=== PATIENT | male | born 1980 | race American Indian/Alaskan Native ===

== ENCOUNTER 2019-01-07 00:44 | Emergency (ER) | payer OTHER ==
[2019-01-07] MEDS ORDERED: NACL 0.9% 1000 ML 2,000 ML IV ONE (01:06)
--- NOTE | 2019-01-07 01:07 | Emergency Department Report ---
ED General Adult HPI - General Chief complaint: Dizziness Stated complaint: THUMB INJURY/DIZZINESS Time Seen by Provider: 01/07/19 00:59 Source: patient Mode of arrival: Ambulatory Limitations: Physical Limitation - History of Present Illness Initial comments: This is a 38-year-old gentleman. His primary care doctor is Dr. De Leon He reports a history of hypertension, and currently takes Diovan, 320/12.5. This was recently increased by his primary care doctor from 160 mg. This was increased a few weeks to months ago. Patient presents to the emergency room today with 2 complaints. His first complaint is right thumb pain and dislocation. The patient is right-hand dominant. This started after the patient opened up his refrigerator with too much force. He has sharp pain, and decreased range of motion in the right thumb. He has no other extremity injuries or complaints. He denies other trauma. He also admits to having a few recreational drinks tonight. He reports that he feels dizzy. The dizziness is described as lightheadedness. He denies headache, neck pain, chest pain, abdominal pain, shortness of breath, vomiting blood, defecating blood. The patient denies DVT, pulmonary embolus risk factors. -: Sudden Location: right, upper extremity Radiation: non-radiation Consistency: constant Improves with: rest Worsens with: movement - Related Data Previous Rx's Medication Instructions Recorded Last Taken Type Acetaminophen [Non-Aspirin Extra 500 mg PO Q6HR PRN #30 tablet 01/07/19 Unknown Rx Strength] Ibuprofen [Motrin] 600 mg PO Q8H PRN #30 tablet 01/07/19 Unknown Rx Allergies Allergy/AdvReac Type Severity Reaction Status Date / Time No Known Allergies Allergy Unverified 01/07/19 00:52 ED Review of Systems ROS: Stated complaint: THUMB INJURY/DIZZINESS Other details as noted in HPI Constitutional: denies: fever Eyes: denies: eye discharge ENT: denies: dental pain, hearing loss, epistaxis, congestion Respiratory: denies: cough Cardiovascular: other (near syncope). denies: chest pain Gastrointestinal: denies: abdominal pain, nausea, vomiting Musculoskeletal: joint swelling, arthralgia, myalgia Skin: denies: lesions Neurological: weakness Psychiatric: anxiety ED Past Medical Hx - Past Medical History Previous Medical History?: Yes Hx Hypertension: Yes - Surgical History Past Surgical History?: No - Social History Smoking Status: Current Every Day Smoker Substance Use Type: Alcohol - Medications Home Medications: Home Medications Medication Instructions Recorded Confirmed Last Taken Type Acetaminophen [Non-Aspirin Extra 500 mg PO Q6HR PRN #30 tablet 01/07/19 Unknown Rx Strength] Ibuprofen [Motrin] 600 mg PO Q8H PRN #30 tablet 01/07/19 Unknown Rx ED Physical Exam - General Limitations: Physical Limitation General appearance: alert, in no apparent distress - Head Head exam: Present: atraumatic, normocephalic - Eye Eye exam: Present: normal appearance, EOMI, other (visual acuity intact to finger counting, color perception, reading at a close distance). Absent: nystagmus - ENT ENT exam: Present: normal exam, normal orophraynx, mucous membranes moist, normal external ear exam - Neck Neck exam: Present: normal inspection, full ROM. Absent: tenderness, meningism us - Respiratory Respiratory exam: Present: normal lung sounds bilaterally. Absent: respiratory distress - Cardiovascular Cardiovascular Exam: Present: regular rate, normal rhythm, normal heart sounds. Absent: bradycardia, tachycardia, irregular rhythm, systolic murmur, diastolic murmur, rubs, gallop - GI/Abdominal GI/Abdominal exam: Present: soft. Absent: distended, tenderness, guarding, rebound, rigid, pulsatile mass - Rectal Rectal exam: Present: deferred - Extremities Exam Extremities exam: Present: tenderness (there is tenderness at the base of the right thumb. The thumb appears to be obviously deformed. Otherwise, upper and lower extremities are unremarkable and within normal limits.), other (2+ pulses noted in the bilateral upper, lower extremities. Compartments soft. No long bony tenderness. The pelvis is stable. Exception to this is tenderness at the base of the right thumb, near the dislocation). Absent: normal inspection, calf tenderness - Back Exam Back exam: Present: normal inspection - Neurological Exam Neurological exam: Present: alert (there is no pass pointing. There is normal [id number]. There is no pronator drift.), oriented X3, other (Extraocular movements intact. Tongue midline. No facial droop. Facial sensation intact to light touch in the V1, V2, V3 distribution bilaterally. 5 and 5 strength in 4 extremities.. Sensation is intact to light touch in 4 extremities.). Absent: motor sensory deficit - Psychiatric Psychiatric exam: Present: normal mood - Skin Skin exam: Present: warm, dry, intact, normal color. Absent: rash ED Course Vital Signs 01/07/19 01/07/19 01/07/19 00:49 01:36 01:37 Temperature 97.9 F Pulse Rate 85 86 Respiratory 20 16 18 Rate Blood Pressure 73/43 Blood Pressure 91/55 [Left] O2 Sat by Pulse 98 97 97 Oximetry 01/07/19 01/07/19 01/07/19 02:02 02:30 02:43 Temperature Pulse Rate 96 H 84 93 H Respiratory 15 12 21 Rate Blood Pressure Blood Pressure 116/72 115/66 116/71 [Left] O2 Sat by Pulse 99 99 99 Oximetry 01/07/19 01/07/19 01/07/19 03:00 03:30 04:00 Temperature Pulse Rate 76 72 74 Respiratory 18 20 19 Rate Blood Pressure Blood Pressure 110/53 94/49 85/44 [Left] O2 Sat by Pulse 95 99 97 Oximetry 01/07/19 01/07/19 04:31 05:47 Temperature Pulse Rate 68 75 Respiratory 18 14 Rate Blood Pressure Blood Pressure 92/56 99/52 [Left] O2 Sat by Pulse 99 97 Oximetry - Reevaluation(s) Reevaluation #1: 01/07/19 01:50 Differential diagnosis, including not limited to: Right thumb dislocation, dehydration, orthostasis, alcohol consumption, medication side effects Assessment and plan: 38-year-old gentleman with 2 complaints. Complaint #1, right thumb pain, thumb appears to be dislocated at the metacarpal phalangeal joint. We will provide the patient with pain medication, then reduce this dislocation, then apply a splint, and he can follow up with an outpatient orthopedist. Complaint #2, dizziness, found to be somewhat hypotensive. Currently blood pressure 91/55. Most looking multifactorial, including probable combination of medications, dehydration, and alcohol intake. There is no history of other trauma, the patient has no midline cervical spine pain or tenderness, and the remainder of his neurologic examination is unremarkable. There are no DVT or pulmonary embolus risk factors, the patient is low risk by well's criteria, and he is perc negative 01/07/19 02:27 Reevaluation #2: 01/07/19 02:27 Blood pressure markedly improved, 111/65. No acute distress. Reevaluation #3: 01/07/19 03:35 Blood pressure is improved. Thumb is successfully reduced. Laboratory studies reviewed and appreciated. Patient clinically sober at this time. Thumb splint will be placed by nursing team. Patient is medically suitable to be discharged to follow-up as an outpatient. We will instruct him to withhold his blood pressure medication, pending repeat evaluation by his primary care doctor, to be careful with alcohol consumption, and to follow-up with a primary care doctor or orthopedist for his right thumb dislocation. - Orthopedic Joint Reduction Joint #1 Consent Obtained: verbal consent, emergent situation Time Out Performed: Yes Side: right Joint Reduction Location: finger Analgesia: other (intravenous fentanyl, Toradol) Technique Used: direct manipulation, other (applied gentle digital/distal traction to the right thumb, and reduced dislocation. Patient tolerated pr ocedure well.) Post-Reduction Neuro Exam: intact Post-Reduction Vascular Exam: intact Post Reduction X-Ray Obtained: Yes Post Reduction X-Ray Results: reduced Splint Applied: Yes Patient Tolerated Procedure: well ED Medical Decision Making - Lab Data Result diagrams: 01/07/19 01:49 01/07/19 01:49 Vital Signs 01/07/19 01/07/19 01/07/19 00:49 01:36 01:37 Temperature 97.9 F Pulse Rate 85 86 Respiratory 20 16 18 Rate Blood Pressure 73/43 Blood Pressure 91/55 [Left] O2 Sat by Pulse 98 97 97 Oximetry Vital Signs 01/07/19 01/07/19 01/07/19 00:49 01:36 01:37 Temperature 97.9 F Pulse Rate 85 86 Respiratory 20 16 18 Rate Blood Pressure 73/43 Blood Pressure 91/55 [Left] O2 Sat by Pulse 98 97 97 Oximetry 01/07/19 01/07/19 01/07/19 02:02 02:30 02:43 Temperature Pulse Rate 96 H 84 93 H Respiratory 15 12 21 Rate Blood Pressure Blood Pressure 116/72 115/66 116/71 [Left] O2 Sat by Pulse 99 99 99 Oximetry 01/07/19 03:00 Temperature Pulse Rate 76 Respiratory 18 Rate Blood Pressure Blood Pressure 110/53 [Left] O2 Sat by Pulse 95 Oximetry Lab Results 01/07/19 01/07/19 01/07/19 Range/Units 01:49 01:49 01:49 WBC 5.8 (4.5-11.0) K/mm3 RBC 5.37 H (3.65-5.03) M/mm3 Hgb 13.2 (11.8-15.2) gm/dl Hct 40.6 (35.5-45.6) % MCV 76 L (84-94) fl MCH 25 L (28-32) pg MCHC 33 (32-34) % RDW 14.7 (13.2-15.2) % Plt Count 163 (140-440) K/mm3 Lymph % (Auto) 31.0 (13.4-35.0) % [place] % (Auto) 8.9 H (0.0-7.3) % Eos % (Auto) 1.0 (0.0-4.3) % Baso % (Auto) 0.9 (0.0-1.8) % Lymph # 1.8 (1.2-5.4) K/mm3 [place] # 0.5 (0.0-0.8) K/mm3 Eos # 0.1 (0.0-0.4) K/mm3 Baso # 0.0 (0.0-0.1) K/mm3 Seg Neutrophils % 58.2 (40.0-70.0) % Seg Neutrophils # 3.4 (1.8-7.7) K/mm3 Sodium 137 (137-145) mmol/L Potassium 3.6 (3.6-5.0) mmol/L Chloride 102.0 (98-107) mmol/L Carbon Dioxide 17 L (22-30) mmol/L Anion Gap 22 mmol/L BUN 14 (9-20) mg/dL Creatinine 1.2 (0.8-1.5) mg/dL Estimated GFR > 60 ml/min BUN/Creatinine Ratio 12 % Glucose 98 (75-100) mg/dL Calcium 8.9 (8.4-10.2) mg/dL Magnesium 1.80 (1.7-2.3) mg/dL Total Creatine Kinase 140 (55-170) units/L TSH (0.270-4.200) mlU/mL Salicylates (2.8-20.0) mg/dL Acetaminophen (10.0-30.0) ug/mL Plasma/Serum Alcohol (0-0.07) % 01/07/19 01/07/19 01/07/19 Range/Units 01:49 01:49 01:49 WBC (4.5-11.0) K/mm3 RBC (3.65-5.03) M/mm3 Hgb (11.8-15.2) gm/dl Hct (35.5-45.6) % MCV (84-94) fl MCH (28-32) pg MCHC (32-34) % RDW (13.2-15.2) % Plt Count (140-440) K/mm3 Lymph % (Auto) (13.4-35.0) % [place] % (Auto) (0.0-7.3) % Eos % (Auto) (0.0-4.3) % Baso % (Auto) (0.0-1.8) % Lymph # (1.2-5.4) K/mm3 [place] # (0.0-0.8) K/mm3 Eos # (0.0-0.4) K/mm3 Baso # (0.0-0.1) K/mm3 Seg Neutrophils % (40.0-70.0) % Seg Neutrophils # (1.8-7.7) K/mm3 Sodium (137-145) mmol/L Potassium (3.6-5.0) mmol/L Chloride (98-107) mmol/L Carbon Dioxide (22-30) mmol/L Anion Gap mmol/L BUN (9-20) mg/dL Creatinine (0.8-1.5) mg/dL Estimated GFR ml/min BUN/Creatinine Ratio % Glucose (75-100) mg/dL Calcium (8.4-10.2) mg/dL Magnesium (1.7-2.3) mg/dL Total Creatine Kinase (55-170) units/L TSH 0.994 (0.270-4.200) mlU/mL Salicylates < 0.3 L (2.8-20.0) mg/dL Acetaminophen < 5.0 L (10.0-30.0) ug/mL Plasma/Serum Alcohol (0-0.07) % 01/07/19 Range/Units 01:49 WBC (4.5-11.0) K/mm3 RBC (3.65-5.03) M/mm3 Hgb (11.8-15.2) gm/dl Hct (35.5-45.6) % MCV (84-94) fl MCH (28-32) pg MCHC (32-34) % RDW (13.2-15.2) % Plt Count (140-440) K/mm3 Lymph % (Auto) (13.4-35.0) % [place] % (Auto) (0.0-7.3) % Eos % (Auto) (0.0-4.3) % Baso % (Auto) (0.0-1.8) % Lymph # (1.2-5.4) K/mm3 [place] # (0.0-0.8) K/mm3 Eos # (0.0-0.4) K/mm3 Baso # (0.0-0.1) K/mm3 Seg Neutrophils % (40.0-70.0) % Seg Neutrophils # (1.8-7.7) K/mm3 Sodium (137-145) mmol/L Potassium (3.6-5.0) mmol/L Chloride (98-107) mmol/L Carbon Dioxide (22-30) mmol/L Anion Gap mmol/L BUN (9-20) mg/dL Creatinine (0.8-1.5) mg/dL Estimated GFR ml/min BUN/Creatinine Ratio % Glucose (75-100) mg/dL Calcium (8.4-10.2) mg/dL Magnesium (1.7-2.3) mg/dL Total Creatine Kinase (55-170) units/L TSH (0.270-4.200) mlU/mL Salicylates (2.8-20.0) mg/dL Acetaminophen (10.0-30.0) ug/mL Plasma/Serum Alcohol 0.12 H (0-0.07) % - EKG Data -: EKG Interpreted by Me EKG shows normal: sinus rhythm - EKG Data When compared to previous EKG there are: previous EKG unavailable 01/07/19 02:19 This is a sinus rhythm 93 bpm, left axis deviation, left anterior fascicular block, high left ventricular voltage, QTC prolonged, borderline atrial enlargement there is no prior EKG for comparison. This EKG is not consistent with ST elevation myocardial infarction - Radiology Data Radiology results: image reviewed interpreted by me: X-ray of the right thumb shows no fracture, but does demonstrate a metacarpophalangeal dislocation. Print Report Referring Physician: KADE MARTINEZ Patient Name: FAYE HOOD Date of : 1980 Sex: Male Report Date: 2019-01-07 Report Status: Finalized Findings [facility] [address] [place] [address] XRay Report Signed Patient: FAYE HOOD MR #: [id number] : 1980 Acct:[id number] Age/Sex: 38 / M ADM Date: 01/07/19 Loc: ED Attending Dr: Ordering Physician: KADE MARTINEZ MD Date of Service: 01/07/19 Procedure(s): XR hand 2V RT Accession Number(s): [id number] cc: KADE MARTINEZ MD Fluoro Time In Minutes: PROCEDURE: XR HAND 2V RT TECHNIQUE: 2 views of the right hand HISTORY: Right thumb injury COMPARISONS: None FINDINGS:. Dislocation of the metacarpal phalangeal joint of the thumb. The proximal phalanx is completely subluxed radially and slightly volarly with respect to the metacarpal. There is no evidence of acute fracture. Otherwise, the bones, joints and soft tissues are unremarkable. IMPRESSION: Acute dislocation of the metacarpal phalangeal joint of the thumb as described above This document is electronically signed by Donato Garsia MD., January 07 2019 02:18:23 AM ET Transcribed By: ML Dictated By: DONATO GARSIA MD Electronically Authenticated By: DONATO GARSIA MD Signed Date/Time: 01/07/19 0220 Critical care attestation.: If time is entered above; I have spent that time in minutes in the direct care of this critically ill patient, excluding procedure time. ED Disposition Clinical Impression: Alcohol intoxication Qualifiers: Complication of substance-induced condition: uncomplicated Qualified Code(s): F10.920 - Alcohol use, unspecified with intoxication, uncomplicated Dislocation of right thumb Qualifiers: Encounter type: initial encounter Qualified Code(s): S63.104A - Unspecified dislocation of right thumb, initial encounter Disposition: - TO HOME OR SELFCARE Is pt being admited?: No Does the pt Need Aspirin: No Condition: Stable Additional Instructions: Follow up with your primary care doctor within 7-10 days. Please hold blood pressure medication and did not take your blood pressure medication until you have followed up with your primary care doctor. Please make certain to moderate and be careful with alcohol consumption. Does not consume alcohol, and simultaneously drive, making poor decisions, or take sedating medications. The right thumb splint in place, and do not take it off until cleared by either her primary care doctor or orthopedist. Follow-up with either a primary care doctor or orthopedist within the next 5-7 days for right thumb dislocation which has been reduced. Patient may take the prescribed pain medication as directed. Please return to the emergency room right away with new, worsening or different symptoms, or symptoms not present on the initial emergency room evaluation. Prescriptions: Ibuprofen [Motrin] 600 mg PO Q8H PRN #30 tablet PRN Reason: Pain Acetaminophen [Non-Aspirin Extra Strength] 500 mg PO Q6HR PRN #30 tablet PRN Reason: Pain , Severe (7-10) Referrals: [facility] [Provider Group] - 3-5 Days [facility] [Provider Group] - 3-5 Days Forms: Work/School Release Form(ED)
[2019-01-07] MEDS ORDERED: SUBLIMAZE IV ONE (01:45)
[2019-01-07] MEDS ORDERED: TORADOL IV ONE (01:45)
[2019-01-07 02:19] LABS: Basophils % (Auto) 0.9 % (0.0-1.8); Eosinophils # (Auto) 0.1 K/mm3 (0.0-0.4); Hematocrit 40.6 % (35.5-45.6); Hemoglobin 13.2 gm/dl (11.8-15.2); Lymphocytes # (Auto) 1.8 K/mm3 (1.2-5.4); Mean Corpuscular HGB Conc 33 % (32-34); Mean Corpuscular Volume 76 fl (84-94); Monocytes # (Auto) 0.5 K/mm3 (0.0-0.8); Monocytes % (Auto) 8.9 % (0.0-7.3); Platelet Count 163 K/mm3 (140-440); Red Blood Count 5.37 M/mm3 (3.65-5.03); Red Cell Distribution Width 14.7 % (13.2-15.2)
--- NOTE | 2019-01-07 02:20 | XRay Report ---
PROCEDURE: XR HAND 2V RT TECHNIQUE: 2 views of the right hand HISTORY: Right thumb injury COMPARISONS: None FINDINGS:. Dislocation of the metacarpal phalangeal joint of the thumb. The proximal phalanx is compl etely subluxed radially and slightly volarly with respect to the metacarpal. There is no evidence of acute fracture. Otherwise, the bones, joints and soft tissues are unremarkable. IMPRESSION: Acute dislocation of the metacarpal phalangeal joint of the thumb as described above This document is electronically signed by Tennille Garsia MD., January 07 2019 02:18:23 AM ET
[2019-01-07 02:35] LABS: BUN/Creatinine Ratio 12; Blood Urea Nitrogen 14 mg/dL (9-20); Calcium 8.9 mg/dL (8.4-10.2); Hemolysis Index 6
[2019-01-07 05:48] VITALS: BP 99/52
--- NOTE | 2019-01-07 05:59 | XRay Report ---
PROCEDURE: XR HAND 2V RT HISTORY: s/p thumb reduction FINDINGS: PA, lateral and oblique views of the right hand were acquired and compared to prior radiographs of ea chidi in the day. There has been relocation of the first metacarpal phalangeal joint. No fracture is seen. IMPRESSION: Successful relocation of first metacarpal phalangeal joint This document is electronically signed by Reinier Melendez MD., January 07 2019 05:57:35 AM ET
== END 2019-01-07 05:56 | disposition home or self-care (01) ==
LOC: ED 00:44
DX: S63.114A Dislocation of metacarpophalangeal joint of right thumb, initial encounter (principal); I10 Essential (primary) hypertension; F17.200 Nicotine dependence, unspecified, uncomplicated; Z79.899 Other long term (current) drug therapy; X50.9XXA Other and unspecified overexertion or strenuous movements or postures, initial encounter; Y93.89 Activity, other specified; Y92.89 Other specified places as the place of occurrence of the external cause; Y99.8 Other external cause status
CPT/HCPCS: 26700; 36415; 73120; 80048; 82550; 83735; 84443; 85025; 93005; 93010; 99284; G0480; J1885; J3010; J7030; 80320